=== PATIENT | male | born 1960 | race Caucasian/White ===

== ENCOUNTER → 2022-04-03 | Outpatient (CLI) | LOC: M SOG 07:54 | PROVIDERS: ATTEND Orthopaedic Surgery | DX: M54.50 Low back pain, unspecified (principal); M47.816 Spondylosis without myelopathy or radiculopathy, lumbar region; M54.2 Cervicalgia; M25.512 Pain in left shoulder; M53.82 Other specified dorsopathies, cervical region ==

== ENCOUNTER → 2022-04-20 | Outpatient (CLI) | LOC: M SOG 08:15 | PROVIDERS: ATTEND Orthopaedic Surgery | DX: M25.522 Pain in left elbow (principal) ==

== ENCOUNTER → 2022-07-25 | Outpatient (REF) | LOC: M PLAIMG 12:05 | PROVIDERS: ATTEND Internal Medicine | DX: R52 Pain, unspecified (principal) ==

== ENCOUNTER → 2022-10-23 | Outpatient (CLI) | LOC: M SOG 11:56 | PROVIDERS: ATTEND Orthopaedic Surgery Hand Surgery | DX: M79.642 Pain in left hand (principal) ==

== ENCOUNTER 2023-01-07 08:09 | Day surgery (SDC) | payer OTHER ==
[~2023-01-07] VITALS: Ht 180.3 cm; Wt 87.2 kg
[~2023-01-07 08:09] MED LIST: ALBU8.5H; B-122500 PO; GABA-1171 PO; IRON65TA2 PO; LIDOCAINE W/EPINEPHRINE 1% 20ML VIAL XX ONE; METF500T13 PO; ROSU5TAB5 PO; SODIUM BICARBONATE 8.4% INJ 50MEQ 50ML VIAL XX ONE; THERTAB52 PO; TRAM50TA2 PO; VITA500C24 PO
[2023-01-07] MEDS ORDERED: BACITRACIN OINTMENT 30GM TUBE As Ordered ONE (10:32)
[2023-01-07 11:00] VITALS: BP 113/77; TEMP 98; O2SAT 98
== END 2023-01-07 11:00 | disposition home or self-care (01) ==
LOC: M SDC 08:09
PROVIDERS: ATTEND Orthopaedic Surgery Hand Surgery
DX: M65.4 Radial styloid tenosynovitis [de Quervain] (principal); J45.909 Unspecified asthma, uncomplicated; Z79.51 Long term (current) use of inhaled steroids
CPT/HCPCS: 25000; J0665